=== PATIENT | female | born 1990 | race Caucasian/White ===

== ENCOUNTER 2021-06-28 18:40 | Outpatient (CLI) | payer BC, SELFPAY ==
[2017-11-28 20:32] VITALS: BMI 31.8
[2021-06-28 19:29] VITALS: BP 114/76; PULSE 101
[2021-06-28 19:32] VITALS: BMI 35.4
[2021-06-28 19:42] LABS: ROM Internal Control Test YES-OK TO RESULT pt. (Internal QC); ROM Patient Test Negative (Negative)
--- NOTE | 2021-07-02 12:13 | OB.TRI.NOTE ---
HPI - General HPI Narrative MITCHELL BANKS, is a 31 F who presents PFSH PFS Medical History (Updated 07/02/21 @ 12:[address] Azra Can MD) Asthma HPV (human papilloma virus) infection Polyhydramnios Home Medications [id number] [] 1 tab PO DAILY 06/28/21 [History Last Taken 06/28/21 08:00] Allergy/AdvReac Type Severity Reaction Status Date / Time No Known Allergies Allergy Verified 11/28/17 20:35 Surgical History (Updated 06/30/21 @ 09:[address] Mary Lou Luciano, DO) History of surgery History of surgery Social History Smoking Status: Light Smoker (<10/day) History Elective abortions Hx Para 1 Spontaneous abortions Hx # Term Pregnancies Ectopic pregnancies Hx # Pregnancies Multiple births # of living children NST FHR Rate Baby A Baseline: 130 Variability:: Moderate Accelerations:: 15 x 15 Decelerations:: None NST Reactive:: Yes FHR Category:: Category I Uterine Activity:: irreg ctxs Assessment & Plan (1) 37 weeks gestation of : COMMENT: 37 weeks 3-day 4 para 1 for false labor. Patient observed, was deemed not to be an active labor. Was discharged home with routine follow-up or to return if contractions worsen.
== END 2021-06-28 20:16 | disposition home or self-care (01) ==
LOC: WPOUT 18:54 → WP 18:54
PROVIDERS: Visit Provider Obstetrics & Gynecology
DX: O47.1 False labor at or after 37 completed weeks of gestation (principal); O99.333 Smoking (tobacco) complicating pregnancy, third trimester; F17.200 Nicotine dependence, unspecified, uncomplicated; Z3A.37 37 weeks gestation of pregnancy
CPT/HCPCS: 59025; 59050; 84112; 99218; G0378

== ENCOUNTER 2021-06-29 01:18 | Inpatient (IN) | payer BC, SELFPAY ==
[2021-06-28 19:32] VITALS: BMI 35.4
[2021-06-29] VITALS (35 sets, daily range): BP systolic 84–129; BP diastolic 48–83; PULSE 56–104; RESP 16–18; TEMP 36.1–37.1; O2SAT 96–98; BMI 35.3
[2021-06-29] MEDS: Lactated Ringers 1,000 ML 200 ML IV ×2 (01:47→07:52)
[2021-06-29] MEDS: Lactated Ringers 500 ML 999 ML IV ×3 (01:48→07:21)
[2021-06-29 01:49] LABS: Absolute Lymphocyte Count 2.16 X10^3/uL (0.83-4.51); Absolute Neutrophil Count 10.7 X10^3/uL (2.0-7.7); Basophil# 0.05 X10^3/uL; Basophil% 0.4 % (0-1); Eosinophil# 0.16 X10^3/uL; Eosinophils% 1.2 % (0-5); Hematocrit 36.7 % (37-47); Hemoglobin 11.9 g/dL (12.0-15.0); Lymphocyte # 2.16 X10^3/ul (0.83-4.51); Lymphocyte % 15.5 % (19-41); Mean Corp Hgb Conc 32.4 g/dL (32-36); Mean Corpuscular Hgb 28.2 pg (27.0-32.0); Mean Platelet Vol. 9.9 fl (6.2-12.0); Monocyte# 0.72 X10^3/uL; Monocyte% 5.2 % (0-10); NRBC Flagged by Analyzer 0 % (0-5); Neutrophil % 76.8 % (47-70); Platelet Count 278 K/mm3 (150-450); RBC Distribution Width CV 13.8 % (11.6-14.6); RBC Distribution Width SD 43.4 fl (35.1-43.9); Red Blood Count 4.22 M/mm3 (4.2-5.4); White Blood Count 13.9 K/mm3 (4.4-11.0)
[2021-06-29] MEDS: fentaNYL-bupivacaine (epidural) 100 ML BAG EPIDURAL ×2 (02:47→08:50)
[2021-06-29] MEDS: Penicillin G 3,000,000 Units 50 ML 100 UNITS IV ×2 (05:33→09:31)
--- NOTE | 2021-06-29 07:33 | PCM.HP.OB ---
HPI - General General Date of Admission: 06/29/21 HPI Narrative MITCHELL BANKS, is a 31 F who presents in labor. Cvx 8 cm dilated. No vb or LOF. +Ctx's. PFSH PFSH Medical History (Updated 06/29/21 @ 07:[address] Mary Lou Luciano, DO) Asthma HPV (human papilloma virus) infection Polyhydramnios Home Medications [id number] [] 1 tab PO DAILY 06/28/21 [History Last Taken 06/28/21 08:00] Allergy/AdvReac Type Severity Reaction Status Date / Time No Known Allergies Allergy Verified 11/28/17 20:35 Surgical History (Updated 06/29/21 @ 01:36 by Marichuy Enamorado) History of surgery History of surgery Social History Smoking Status: Light Smoker (<10/day) History Elective abortions Hx Para 1 Spontaneous abortions Hx # Term Pregnancies Ectopic pregnancies Hx # Pregnancies Multiple births # of living children NST FHR Rate Baby A Baseline: 130 Variability:: Moderate Accelerations:: 15 x 15 Decelerations:: Variable FHR Category:: Category I Vital Signs Vital Signs Vital Signs: 06/29/21 00:54 06/29/21 00:55 06/29/21 02:10 Temperature 98.6 F 98.2 F Temperature Source Temporal Pulse Rate 104 H 93 Blood Pressure 120/77 128/79 H BP Systolic 120 128 BP Diastolic 77 79 Pulse Ox 97 97 06/29/21 02:15 06/29/21 02:18 06/29/21 02:20 Temperature Temperature Source Pulse Rate 92 90 91 Blood Pressure 125/78 H 129/83 H BP Systolic 125 129 BP Diastolic 78 83 Pulse Ox 98 98 06/29/21 02:25 06/29/21 02:26 06/29/21 02:31 Temperature Temperature Source Pulse Rate 85 94 Blood Pressure 113/76 99/67 BP Systolic 113 99 BP Diastolic 76 67 Pulse Ox 96 97 06/29/21 02:36 06/29/21 02:41 06/29/21 02:46 Temperature Temperature Source Pulse Rate 94 98 100 Blood Pressure 99/64 120/55 L 108/53 L BP Systolic 99 120 108 BP Diastolic 64 55 53 Pulse Ox 96 96 96 06/29/21 02:51 06/29/21 02:56 06/29/21 04:36 Temperature 97.9 F Temperature Source Pulse Rate 102 H 78 Blood Pressure 108/58 L 104/59 L BP Systolic 108 104 BP Diastolic 58 59 Pulse Ox 06/29/21 04:37 06/29/21 05:37 06/29/21 07:19 Temperature 97.0 F L 97.9 F Temperature Source Temporal Pulse Rate 80 86 Blood Pressure 107/64 110/52 L BP Systolic 107 110 BP Diastolic 64 52 Pulse Ox 98 06/29/21 07:20 Temperature Temperature Source Pulse Rate 68 Blood Pressure 85/48 L BP Systolic 85 BP Diastolic 48 Pulse Ox Weight Weight: 212 lb 6.4 oz Body Mass Index (BMI) 35.3 Labs Labs Labs: Blood Type O NEGATIVE Antibody Screen NEGATIVE Hct 36.7 % (37-47) L Hgb 11.9 g/dL (12.0-15.0) L Rhogam given: Yes
[2021-06-29] MEDS: Oxytocin 30 units/NS 500 ml 30 UNITS/500 ML IV.SOLN 334 UNITS IV (10:18)
--- NOTE | 2021-06-29 10:32 | OP.PCM_ITS ---
Problems Associated Problem List Diagnoses (1) Polyhydramnios affecting : (2) Rh negative state in antepartum period: (3) 37 weeks gestation of : Report of Operation Date of Procedure: 06/29/21 Pre-Operative Diagnosis: 37 week gestation, multiparous patient, polyhydramnios, labor Post-Operative Diagnosis: As above Surgery/Procedure Performed:: Description of Surgical Findings:: VFI in OA position. Nuchal cord x 1 around neck and body of . Copious clear fluid. Surgeon: magalys splitter tender: None Type of Anesthesia: Epidural Special Medications: None Specimen's removed: Placenta Drains: Whittaker Estimated Blood Loss (mL): 200 Fluids Replaced: n/a Description of Procedure: Patient was complete and pushing. heart rate dropped to 90 bpm and was not recovering. Patient was placed in left lateral position and continued with pushing. After about 5 pushes, the head of the infant was delivered in occiput anterior position, followed by the shoulders and body of the infant without any force or delay. There was a loose nuchal cord around the neck and body of the . The infant was delivered through the nuchal cord. The cord was clamped and cut immediately. The was taken to the warmer. Cord gases and cord blood were obtained. The placenta was delivered with fundal massage and noted to be intact and normal appearing. Uterus was explored x1. Bleeding was hemostatic and fundus was firm. No vaginal or perineal lacerations noted. Bilateral labial abrasions were noted. The right labial abrasion was bleeding, and a single stitch was placed using 3-0 Vicryl for hemostasis. Instrument, needle, sponge counts were correct. Vaginal sweep was performed. Grafts/Implants Used: None Complications None Admit VTE Documentation VTE Present on Admission: No VTE Pharm Prophylaxis ordered?: No
[2021-06-29] MEDS: Acetaminophen 500 MG Tablet 1000 MG PO (17:32)
[2021-06-30 00:31] VITALS: BP 108/60; PULSE 57; RESP 18; TEMP 36.3
[2021-06-30] MEDS: Ibuprofen 600 MG Tablet PO ×2 (00:46→07:28)
[2021-06-30 04:35] VITALS: BP 105/68; PULSE 61; RESP 18
[2021-06-30 07:29] VITALS: BP 115/70; PULSE 63; RESP 18; TEMP 36.1; O2SAT 97
[2021-06-30] MEDS: Etonogestrel 68 MG IMPLANT SC (08:44)
--- NOTE | 2021-06-30 09:04 | PCM.OPRPT ---
Problems Associated Problem List Diagnoses (1) Encounter for control: Report of Operation Date of Procedure: 06/30/21 Pre-Operative Diagnosis: Desires Nexplanon for contraception Post-Operative Diagnosis: As above Surgery/Procedure Performed:: Nexplanon placement Description of Surgical Findings:: Discussed r/b/a and possible side effects of the Nexplanon. Consent signed. Incision site was selected 10 cm from the medial epicondyle of her right arm, and marked with a sterile marker. The procedure area was prepped and draped in a sterile fashion. 3 mL of 1% lidocaine with epinephrine was used for subcutaneous anesthesia. Anesthesia confirmed. The Nexplanon trocar was inserted subcutaneously and then the Nexplanon capsule was delivered subcutaneously. The trocar was removed from the insertion site. The Nexplanon capsule was palpated by both the provider and the patient to assure satisfactory placement. Steri-Strips and a dressing was applied. The patient tolerated the procedure well without complications. Standard postprocedure care was explained and return precautions given. Surgeon: Mary Lou Luciano violin mechanic: None Type of Anesthesia: Local Special Medications: None Specimen's removed: None Drains: None Estimated Blood Loss (mL): < 50 cc Fluids Replaced: N/A Grafts/Implants Used: Nexplanon Procedure Start Time: 08:50 Procedure Stop Time: 09:00 Complications None Admit VTE Documentation VTE Present on Admission: No VTE Mechan Device Prophylaxis: SCD's VTE Pharm Prophylaxis ordered?: No
--- NOTE | 2021-06-30 09:08 | PCM.PN.OB ---
Subjective Subjective Patient is doing well. Having some cramping but controlled with Motrin. Tolerating regular diet without nausea or vomiting. Ambulating and voiding without difficulty. Lochia is normal. She has no complaints and desires to go home today. Objective Data Objective Data Vital Signs: Vital Signs Temp Pulse Resp BP Pulse Ox 97 F L 63 18 115/70 97 06/30/21 07:29 06/30/21 07:29 06/30/21 07:29 06/30/21 07:29 06/30/21 07:29 Oxygen Delivery Method Room Air Weight: 212 lb 6.4 oz Body Mass Index (BMI) 35.3 Intake & Output: Intake and Output for Last 24 Hours 06/28/21 06/29/21 06/30/21 23:59 23:59 23:59 Intake Total 3545 / 3545 Output Total 1800 / 1800 Balance 1745 / 1745 Lab / Micro Data Result Diagrams: 06/29/21 01:35 Labs: Laboratory Results - last 24 hr 06/29/21 15:27: Screen NEGATIVE, Baby's Blood Type O POSITIVE, Baby's KAYLA NEGATIVE Micro: Microbiology 06/29/21 01:45 Mucosa - Nose SARS-CoV-2 Antigen (Rapid) - Final Physical Exam Const alert General Appearance: cooperative Orientation / Consciousness: awake GI soft to palpation, non-tender and non-distended Assessment & Plan (1) Status post vaginal delivery: PLAN: Patient is day 1 from a vaginal delivery. She was doing well desires to go home. Nexplanon was placed for control, see operative report for details. Discharge instructions reviewed.
--- NOTE | 2021-06-30 09:10 | PCM.DC ---
Discharge Instructions Follow Up Care Test Results: Test results from this visit will be discussed in further detail at your follow-up appointment, if applicable. Discharge Plan Admission Admit Date/Time: 06/29/21 01:18 Primary Reason for Your Visit: Delivery Attending Provider: Mary Lou Luciano Primary Care Provider: Care Physician,No Primary Instructions Patient Instructions: After a Vaginal Discharge Orders/Prescriptions Prescriptions: No Action 1 mg Tablet 1 tab PO DAILY RF: 0 Referrals / Follow Up: Care Physician,No Primary [Primary Care Provider] - Disposition Disposition (needs filled in before D/C Order can be placed): Home, Self Care
[2021-06-30 11:50] VITALS: BP 124/78; PULSE 77; RESP 16; TEMP 36.1
== END 2021-06-30 12:00 | disposition home or self-care (01) | DRG 807 ==
LOC: WPOUT 01:20 → WP 01:20
PROVIDERS: Obstetrics & Gynecology; Admitting Provider Obstetrics & Gynecology; Visit Provider Obstetrics & Gynecology
DX: O40.3XX0 Polyhydramnios, third trimester, not applicable or unspecified (principal); Z37.0 Single live birth; F17.200 Nicotine dependence, unspecified, uncomplicated; Z3A.37 37 weeks gestation of pregnancy; O71.82 Other specified trauma to perineum and vulva; O99.334 Smoking (tobacco) complicating childbirth; O99.52 Diseases of the respiratory system complicating childbirth; J45.909 Unspecified asthma, uncomplicated; O69.81X0 Labor and delivery complicated by cord around neck, without compression, not applicable or unspecified; Z87.42 Personal history of other diseases of the female genital tract
CPT/HCPCS: 59025; 59050; 85025; 85461; 86850; 86900; 86901; 87426; 90384; 99218; J7120; G0378; J2790

== ENCOUNTER 2024-08-05 18:05 | Emergency (ER) | payer BC, SELFPAY ==
[2024-08-05 18:07] VITALS: BP 123/78; PULSE 62; RESP 18; TEMP 36.3; O2SAT 95; BMI 28.2
--- NOTE | 2024-08-05 19:40 | ED.RN ---
1938 called for pt no answer.
== END 2024-08-05 19:39 | disposition left against medical advice (07) ==
LOC: ED 19:40
DX: Z53.21 Procedure and treatment not carried out due to patient leaving prior to being seen by health care provider (principal)